=== PATIENT | male | born 1960 | race Caucasian/White ===

== ENCOUNTER 2018-04-23 23:29 | Emergency (ER) | payer MEDICAID ==
[~2018-04-23] VITALS: Ht 170.2 cm; Wt 69.0 kg
[2018-04-23] MEDS ORDERED: KETOROLAC 30 MG/1 ML ONE (23:43)
[2018-04-24] MEDS ORDERED: KETOROLAC 60 MG/2 ML IM ONE
[2018-04-24 00:03] LABS: BASOPHILS # (AUTO) 0.04 x10^3/uL (0-0.1); BASOPHILS % (AUTO) 0 % (0-1); EOSINOPHILS # (AUTO) 0.06 x10^3/uL (0-0.4); EOSINOPHILS % (AUTO) 1 % (1-7); LYMPHOCYTES # (AUTO) 2.44 x10^3/uL (1-3.4); LYMPHOCYTES % (AUTO) 20 % (22-44); MD NO; MEAN CORPUSCULAR HEMOGLOBIN 29.8 pg (27.5-34.5); MEAN CORPUSCULAR VOLUME 87.7 fL (81-97); MEAN PLATELET VOLUME 7.2 fL (7.4-10.4); MONOCYTES # (AUTO) 0.95 x10^3/uL (0.2-0.8); MONOCYTES % (AUTO) 8 % (2-9); NEUTROPHILS % (AUTO) 72 % (42-75); PLATELET COUNT 292 x10^3/uL (130-400); RED BLOOD COUNT 4.69 x10^6/uL (4.38-5.82); RED CELL DISTRIBUTION WIDTH 14.6 % (9.4-14.8)
[2018-04-24 00:12] LABS: ALBUMIN 2.9 g/dL (3.4-5.0); ANION GAP 3 mmol/L (5-15); CALCIUM 8.6 mg/dL (8.5-10.1); CHLORIDE 108 mmol/L (98-107); CREATININE 1.13 mg/dL (0.7-1.3)
[2018-04-24] MEDS ORDERED: PINK LADY ENEMA 490 ML BOTTLE PR ONE (01:00)
[2018-04-24 01:27] LABS: MICROSCOPIC INDICATED
[2018-04-24 01:39] LABS: CULTURE INDICATED? YES
[2018-04-24] MEDS ORDERED: LIDOCAINE-MPF 2%, 2ML ONE (01:50)
[2018-04-24] MEDS ORDERED: CEFTRIAXONE 250 MG ONE (01:50)
[2018-04-24] MEDS ORDERED: MECLIZINE CHEWABLE 25 MG TAB ONE (01:50)
[2018-04-24] MEDS ORDERED: MECLIZINE CHEWABLE 25 MG TAB PO ONE (02:00)
[2018-04-24] MEDS ORDERED: CEFTRIAXONE 1,000 MG IM ONE (02:00)
[2018-04-24 02:30] VITALS: BP 122/100
== END 2018-04-24 02:35 | disposition home or self-care (01) ==
LOC: ED 04-24 00:08
DX: K59.00 Constipation, unspecified (principal); H81.10 Benign paroxysmal vertigo, unspecified ear
CPT/HCPCS: 36415; 74018; 80048; 81001; 82040; 85025; 87086; 96372; 99285; J0696; J1885

== ENCOUNTER 2018-05-19 06:47 | Emergency (ER) | payer MEDICAID ==
[~2018-05-19] VITALS: Ht 175.3 cm; Wt 71.5 kg
[2018-05-19] MEDS ORDERED: ONDANSETRON ODT 4 MG PO ONE (07:30)
[2018-05-19] MEDS ORDERED: KETOROLAC 30 MG/1 ML IM ONE (07:30)
[2018-05-19 07:38] LABS: BASOPHILS # (AUTO) 0.03 x10^3/uL (0-0.1); BASOPHILS % (AUTO) 0 % (0-1); EOSINOPHILS # (AUTO) 0.02 x10^3/uL (0-0.4); EOSINOPHILS % (AUTO) 0 % (1-7); LYMPHOCYTES # (AUTO) 2.85 x10^3/uL (1-3.4); LYMPHOCYTES % (AUTO) 27 % (22-44); MD NO; MEAN CORPUSCULAR HEMOGLOBIN 29.2 pg (27.5-34.5); MEAN CORPUSCULAR HGB CONC 33.6 g/dL (33.2-36.2); MEAN CORPUSCULAR VOLUME 86.9 fL (81-97); MEAN PLATELET VOLUME 7.3 fL (7.4-10.4); MONOCYTES # (AUTO) 0.66 x10^3/uL (0.2-0.8); MONOCYTES % (AUTO) 6 % (2-9); NEUTROPHILS # (AUTO) 7.01 x10^3/uL (1.8-6.8); NEUTROPHILS % (AUTO) 66 % (42-75); PLATELET COUNT 283 x10^3/uL (130-400); RED BLOOD COUNT 4.71 x10^6/uL (4.38-5.82); RED CELL DISTRIBUTION WIDTH 14.7 % (9.4-14.8)
[2018-05-19 07:48] LABS: ALANINE AMINOTRANSFERASE 21 U/L (12-78); ALBUMIN 3.1 g/dL (3.4-5.0); ANION GAP 6 mmol/L (5-15); CALCIUM 8.8 mg/dL (8.5-10.1); CHLORIDE 105 mmol/L (98-107); CREATININE 0.98 mg/dL (0.7-1.3); MICROSCOPIC INDICATED
[2018-05-19 07:51] LABS: ALKALINE PHOSPHATASE 100 U/L (45-117); BILIRUBIN,TOTAL 0.2 mg/dL (0.2-1.0); TOTAL PROTEIN 7.6 g/dL (6.4-8.2)
[2018-05-19 07:52] LABS: CULTURE INDICATED? NO
[2018-05-19] MEDS ORDERED: KETOROLAC 30 MG/1 ML ONE (08:14)
[2018-05-19] MEDS ORDERED: ONDANSETRON ODT 4 MG ONE (08:14)
[2018-05-19 09:10] VITALS: BP 127/82
== END 2018-05-19 09:13 | disposition home or self-care (01) ==
LOC: ED 07:37
DX: S39.011A Strain of muscle, fascia and tendon of abdomen, initial encounter (principal); X58.XXXA Exposure to other specified factors, initial encounter; Y93.89 Activity, other specified; Y99.8 Other external cause status; Y92.89 Other specified places as the place of occurrence of the external cause
CPT/HCPCS: 36415; 74176; 80053; 81001; 85025; 87491; 87591; 96372; 99285; J1885; Q0162

== ENCOUNTER 2018-06-14 12:40 | Emergency (ER) | payer MEDICAID ==
[~2018-06-14] VITALS: Ht 180.3 cm; Wt 67.8 kg
[2018-06-14] MEDS ORDERED: KETOROLAC 30 MG/1 ML IM ONE (13:30)
[2018-06-14] MEDS ORDERED: DIAZEPAM 5 MG TABLET PO ONE (13:30)
[2018-06-14 13:51] LABS: BASOPHILS # (AUTO) 0.05 x10^3/uL (0-0.1); BASOPHILS % (AUTO) 1 % (0-1); EOSINOPHILS # (AUTO) 0.08 x10^3/uL (0-0.4); EOSINOPHILS % (AUTO) 1 % (1-7); LYMPHOCYTES # (AUTO) 2.58 x10^3/uL (1-3.4); LYMPHOCYTES % (AUTO) 27 % (22-44); MD NO; MEAN CORPUSCULAR HEMOGLOBIN 29.4 pg (27.5-34.5); MEAN CORPUSCULAR HGB CONC 33.7 g/dL (33.2-36.2); MEAN CORPUSCULAR VOLUME 87.3 fL (81-97); MEAN PLATELET VOLUME 7.4 fL (7.4-10.4); MONOCYTES # (AUTO) 0.59 x10^3/uL (0.2-0.8); MONOCYTES % (AUTO) 6 % (2-9); NEUTROPHILS # (AUTO) 6.28 x10^3/uL (1.8-6.8); NEUTROPHILS % (AUTO) 66 % (42-75); PLATELET COUNT 287 x10^3/uL (130-400); RED BLOOD COUNT 5.67 x10^6/uL (4.38-5.82)
[2018-06-14] MEDS ORDERED: KETOROLAC 30 MG/1 ML ONE (13:52)
[2018-06-14] MEDS ORDERED: DIAZEPAM 5 MG TABLET ONE (13:53)
[2018-06-14 13:58] LABS: ALANINE AMINOTRANSFERASE 24 U/L (12-78); ALBUMIN 3.1 g/dL (3.4-5.0); ANION GAP 9 mmol/L (5-15); CHLORIDE 106 mmol/L (98-107); CREATININE 0.78 mg/dL (0.7-1.3)
[2018-06-14 14:00] LABS: ALKALINE PHOSPHATASE 120 U/L (45-117); BILIRUBIN,TOTAL 0.2 mg/dL (0.2-1.0); CREATINE KINASE, TOTAL 66 U/L (39-308); TOTAL PROTEIN 8.4 g/dL (6.4-8.2)
[2018-06-14 15:06] LABS: MICROSCOPIC INDICATED
[2018-06-14 15:16] LABS: CULTURE INDICATED? NO
[2018-06-14 15:29] VITALS: BP 132/76
== END 2018-06-14 15:50 | disposition home or self-care (01) ==
LOC: ED 14:28
DX: M54.41 Lumbago with sciatica, right side (principal); M79.18 Myalgia, other site; G89.29 Other chronic pain; F41.1 Generalized anxiety disorder
CPT/HCPCS: 36415; 80053; 81001; 82550; 85025; 96372; 99284; J1885

== ENCOUNTER 2019-03-12 20:45 | Emergency (ER) | payer MEDICAID ==
[~2019-03-12] VITALS: Ht 180.3 cm; Wt 72.4 kg
[2019-03-12] MEDS ORDERED: MECLIZINE CHEWABLE 25 MG TAB ONE (21:46)
[2019-03-12] MEDS ORDERED: MECLIZINE CHEWABLE 25 MG TAB PO ONE (22:00)
[2019-03-12 22:04] LABS: BASOPHILS # (AUTO) 0.03 x10^3/uL (0-0.1); BASOPHILS % (AUTO) 0 % (0-1); EOSINOPHILS # (AUTO) 0.03 x10^3/uL (0-0.4); EOSINOPHILS % (AUTO) 0 % (1-7); LYMPHOCYTES % (AUTO) 40 % (22-44); MD NO; MEAN CORPUSCULAR HEMOGLOBIN 29.5 pg (27.5-34.5); MEAN CORPUSCULAR HGB CONC 32.7 g/dL (33.2-36.2); MEAN CORPUSCULAR VOLUME 90.1 fL (81-97); MEAN PLATELET VOLUME 7.2 fL (7.4-10.4); MONOCYTES # (AUTO) 0.69 x10^3/uL (0.2-0.8); MONOCYTES % (AUTO) 9 % (2-9); NEUTROPHILS # (AUTO) 3.84 x10^3/uL (1.8-6.8); NEUTROPHILS % (AUTO) 50 % (42-75); PLATELET COUNT 295 x10^3/uL (130-400); RED BLOOD COUNT 4.57 x10^6/uL (4.38-5.82); RED CELL DISTRIBUTION WIDTH 14.8 % (9.4-14.8)
[2019-03-12 22:14] LABS: ALANINE AMINOTRANSFERASE 24 U/L (12-78); ALBUMIN 3.2 g/dL (3.4-5.0); ANION GAP 7 mmol/L (5-15); CALCIUM 8.4 mg/dL (8.5-10.1); CHLORIDE 110 mmol/L (98-107)
[2019-03-12 22:18] LABS: ALKALINE PHOSPHATASE 81 U/L (45-117); BILIRUBIN,TOTAL 0.3 mg/dL (0.2-1.0); TOTAL PROTEIN 6.9 g/dL (6.4-8.2); TROPONIN I < 0.015 ng/mL (0.000-0.045)
[2019-03-12] MEDS ORDERED: OMNIPAQUE 350 MG/ML, 100ML BOTTLE ONE (23:00)
[2019-03-12] MEDS ORDERED: SODIUM CHLORIDE FLUSH 10ML SYR IVF ONE (23:00)
[2019-03-12 23:18] VITALS: BP 132/93
== END 2019-03-13 01:22 | disposition home or self-care (01) ==
LOC: ED 23:48
DX: R42 Dizziness and giddiness (principal); G89.29 Other chronic pain
CPT/HCPCS: 36415; 70450; 70496; 70498; 80053; 84484; 85025; 93005; 99284; Q9967

== ENCOUNTER 2019-04-09 05:17 | Emergency (ER) | payer MEDICAID ==
[~2019-04-09] VITALS: Ht 180.3 cm; Wt 71.5 kg
--- NOTE | 2019-04-09 05:30 | NUR ---
ICE APPLIED TO L WRIST.
[2019-04-09] MEDS ORDERED: KETOROLAC 30 MG/1 ML ONE ×2 (05:52→05:54)
--- NOTE | 2019-04-09 05:54 | NUR ---
Splint applied to L wrist. +CMS before and after application.
--- NOTE | 2019-04-09 05:58 | NUR ---
MEDICATED FOR PAIN .
[2019-04-09] MEDS ORDERED: KETOROLAC 30 MG/1 ML IM ONE (06:00)
[2019-04-09 08:16] VITALS: BP 138/82
== END 2019-04-09 08:18 | disposition home or self-care (01) ==
LOC: ED 05:33
DX: S49.92XA Unspecified injury of left shoulder and upper arm, initial encounter (principal); M77.9 Enthesopathy, unspecified; X58.XXXA Exposure to other specified factors, initial encounter; Y93.89 Activity, other specified; Y92.89 Other specified places as the place of occurrence of the external cause; Y99.8 Other external cause status
CPT/HCPCS: 73110; 93005; 96372; 99283; J1885

== ENCOUNTER 2019-10-30 17:35 | Emergency (ER) | payer MEDICAID ==
[~2019-10-30] VITALS: Ht 180.3 cm; Wt 72.0 kg
[2019-10-30 18:11] VITALS: BP 130/77
[2019-10-30] MEDS ORDERED: HYDROcodone/APAP 5/325 TABLET PO ONE (18:30)
--- NOTE | 2019-10-30 18:59 | NUR ---
CALL BROTHER RENETTA.
[2019-10-30] MEDS ORDERED: HYDROcodone/APAP 5/325 TABLET ONE (19:07)
[2019-10-30] MEDS ORDERED: KETOROLAC 30 MG/1 ML IM ONE (19:30)
[2019-10-30] MEDS ORDERED: KETOROLAC 30 MG/1 ML ONE (19:35)
== END 2019-10-30 20:04 | disposition home or self-care (01) ==
LOC: ED 20:00
DX: S60.031A Contusion of right middle finger without damage to nail, initial encounter (principal); S80.01XA Contusion of right knee, initial encounter; M19.90 Unspecified osteoarthritis, unspecified site; G89.29 Other chronic pain; F17.200 Nicotine dependence, unspecified, uncomplicated; V29.9XXA Motorcycle rider (driver) (passenger) injured in unspecified traffic accident, initial encounter; Y93.89 Activity, other specified; Y92.488 Other paved roadways as the place of occurrence of the external cause; Y99.8 Other external cause status
CPT/HCPCS: 29505; 72170; 73130; 73552; 73564; 73590; 96372; 99284; J1885

== ENCOUNTER 2020-02-29 07:57 | Emergency (ER) | payer MEDICAID ==
[~2020-02-29] VITALS: Ht 182.9 cm; Wt 71.1 kg
--- NOTE | 2020-02-29 08:20 | NUR ---
first contact with pt. pt states that he thinks that he got a UTI from his girlfriend. reprts that his kidneys hurt. wants an STD screen. pt also c/o left eye pain as well. pt's aox4. resps even and unlabored. bp/spo2 monitors in place. call light within reach.
--- NOTE | 2020-02-29 08:21 | NUR ---
pt amb to br with steady gait. urine cup given.
[2020-02-29] MEDS ORDERED: AZITHROMYCIN 250 MG TABLET ONE (08:25)
[2020-02-29] MEDS ORDERED: CEFTRIAXONE 250 MG ONE (08:25)
[2020-02-29] MEDS ORDERED: AZITHROMYCIN 500 MG TABLET PO ONE (08:30)
[2020-02-29] MEDS ORDERED: CEFTRIAXONE 250 MG IM ONE (08:30)
--- NOTE | 2020-02-29 08:31 | NUR ---
PT MEDICATED PER EMAR. PT TOLERATED WELL.
--- NOTE | 2020-02-29 08:34 | NUR ---
urine collected. ua sent at this time.
[2020-02-29 08:44] LABS: MICROSCOPIC AUTO
[2020-02-29 09:32] VITALS: BP 150/98
--- NOTE | 2020-02-29 09:32 | NUR ---
Patient given discharge instructions and they have confirmed that they understand the instructions. Patient ambulatory with steady gait.
== END 2020-02-29 09:33 | disposition home or self-care (01) ==
LOC: ED 08:27
DX: N39.0 Urinary tract infection, site not specified (principal); M19.90 Unspecified osteoarthritis, unspecified site; F17.200 Nicotine dependence, unspecified, uncomplicated
CPT/HCPCS: 81001; 87086; 87491; 87591; 96372; 99283; J0696